=== PATIENT | male | born 1960 | race Caucasian/White ===

== ENCOUNTER → 2017-01-30 | Outpatient (CLI) | payer BC ==
--- NOTE | 2017-01-30 15:50 | DI ---
Indication: ITS.REASON: M25.551 RIGHT HIP PAIN PROCEDURE: NM BONE SCAN, 3-PHASE: Encounter: Initial Comparison: Pelvis and hip radiograph dated January 21, 2017 Technique: 27.3 mCi of Tc-99m MDP was administered intravenously. Anterior and posterior planar spot images of the hips were obtained in the arterial, blood pool and delayed phases. FINDINGS: No areas of abnormal tracer uptake seen on the arterial phase imaging. No areas of abnormal tracer uptake seen on the blood pool imaging. There is a small area of uptake along the lesser trochanteric region of the right proximal femur seen on the delayed phase only. No area of abnormal tracer uptake seen on the left. 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 No areas of abnormal tracer uptake surrounding the distal portion of either femoral stem. Impression: No bone scan evidence of prosthetic loosening or infection. Small amount of delayed tracer uptake around the right lesser trochanteric region could be due to old trauma given the presence of heterotopic ossification and a cerclage wire near this location. .
== END ==
LOC: IMA 10:36
PROVIDERS: ATTEND Orthopaedic Surgery
DX: M25.551 Pain in right hip (principal); Z96.643 Presence of artificial hip joint, bilateral
CPT/HCPCS: 78315; A9503